=== PATIENT | female | born 1950 | race Caucasian/White ===

== ENCOUNTER 2023-07-16 13:31 | Emergency (ER) | payer MEDICARE, OTHER ==
[~2023-07-16] VITALS: Ht 162.5 cm; Wt 71.7 kg
[~2023-07-16 13:31] MED LIST: AMARYL2 MG PO; AMOXIL500 M1 PO; ASPIRIN ADULT L81 M1 PO; ATORVASTATIN CA40 M1 PO; AZITHROMYCIN250 MG PO; BENZONATATE100 M1 PO; CIPRO500 MG PO; CYCLOBENZAPRINE10 MG PO; DOXYCYCLINE100 M3 PO; DUONEB 3 MG/3 ML3 M1 NEB; HYCODAN/HYDROMET5 ML PO; JANUVIA100 MG PO; LIPITOR20 MG PO; LODINE 400MG400 MG PO; Metformin Hydr500 MG PO; POLYTRIM 1000010 ML OD; PRANDIN2 MG PO; PREDNISONE10 MG PO; PREVACID30 M1 PO; RANEXA500 M1 PO; REPAGLINIDE2 M1 PO; TIMOLOL MALEATE PO; TOPROL XL25 MG PO; ULTRAM50 MG PO; ZESTRIL,PRINIVI10 MG PO; [UNRECOGNIZED DRUG - OTHER] NAS
[2023-07-16] MEDS ORDERED: CLOPIDOGREL75 MG PO (14:43)
[2023-07-16] MEDS ORDERED: ZETIA10 MG PO (14:45)
[2023-07-16] MEDS ORDERED: IRON325 M3 PO (14:46)
[2023-07-16] MEDS ORDERED: NEURONTIN300 MG PO (14:47)
[2023-07-16] MEDS ORDERED: IMDUR SA30 MG PO (14:48)
[2023-07-16] MEDS ORDERED: LISINOPRIL40 MG PO (14:49)
[2023-07-16] MEDS ORDERED: JARDIANCE10 MG PO (14:51)
[2023-07-16] MEDS ORDERED: SERTRALINE HYDR25 MG PO (14:51)
[2023-07-16] MEDS ORDERED: DEXAMETHASONE4 MG PO (14:52)
[2023-07-16] MEDS ORDERED: PERCOCET 5-3251 EACH PO (16:15)
== END 2023-07-16 16:52 | disposition home or self-care (01) ==
LOC: ED 13:31
DX: M54.50 Low back pain, unspecified (principal); M79.652 Pain in left thigh; G89.29 Other chronic pain; I10 Essential (primary) hypertension; E11.9 Type 2 diabetes mellitus without complications; I25.10 Atherosclerotic heart disease of native coronary artery without angina pectoris; I25.2 Old myocardial infarction; M79.7 Fibromyalgia; M19.90 Unspecified osteoarthritis, unspecified site; Z98.890 Other specified postprocedural states

== ENCOUNTER → 2023-07-19 | Outpatient (CLI) | payer MEDICARE, OTHER ==
[~2023-07-19] MED LIST changes: +CLOPIDOGREL75 MG PO; +DEXAMETHASONE4 MG PO; +IMDUR SA30 MG PO; +IRON325 M3 PO; +JARDIANCE10 MG PO; +LISINOPRIL40 MG PO; +NEURONTIN300 MG PO; +PERCOCET 5-3251 EACH PO; +SERTRALINE HYDR25 MG PO; +ZETIA10 MG PO
== END | disposition home or self-care (01) ==
LOC: MRI 01:08
PROVIDERS: ATTEND Physician Assistant Medical
DX: M47.817 Spondylosis without myelopathy or radiculopathy, lumbosacral region (principal); M41.56 Other secondary scoliosis, lumbar region; N28.1 Cyst of kidney, acquired; M48.061 Spinal stenosis, lumbar region without neurogenic claudication

== ENCOUNTER → 2025-04-29 | Outpatient (CLI) | payer MEDICARE, OTHER ==
[~2025-04-29] MED LIST changes: +CLARITIN10 MG PO; +CYCLOBENZAPRINE5 M3 PO; +DOXYCYCLINE HY100 M3 PO; +HYDROCODONE-AC1 EAC1 PO; +KLOR-CON M2020 ME1 PO; +LANTUS SOL100 UNIT/1 SC; +LASIX40 MG PO; +LYRICA150 M1 PO; +MELOXICAM15 MG PO; +PREDNISONE50 MG PO; +VITAMIN D325 MCG PO
== END | disposition home or self-care (01) ==
LOC: CT 13:47
PROVIDERS: ATTEND Family Medicine
DX: R91.1 Solitary pulmonary nodule (principal); I34.81 Nonrheumatic mitral (valve) annulus calcification; I25.10 Atherosclerotic heart disease of native coronary artery without angina pectoris; I51.7 Cardiomegaly; J18.9 Pneumonia, unspecified organism; R06.02 Shortness of breath